=== PATIENT | female | born 1940 | race Caucasian/White ===

== ENCOUNTER 2021-05-16 16:25 | Day surgery (SDC) | payer MEDICARE, OTHER ==
[2021-05-16] MEDS ORDERED: Depo-Medrol 40 MG/ML IM ONE (16:26)
[2021-05-16] MEDS ORDERED: BUPIVACAINE 0.5% VIAL IJ ONE (16:26)
[2021-05-16] MEDS ORDERED: Xylocaine 1% Vial 30 ML PF IJ ONE (16:26)
--- NOTE | 2021-05-16 21:16 | XRAY ---
Indication: Bilateral SI joints injection. Intraoperative fluoroscopy provided for 18 seconds. 4 digital spot image submitted for interpretation demonstrates posterior needle tip projecting over the inferior left and right SI joints. Correlate with intraoperative findings/report.
--- NOTE | 2021-05-17 08:39 | XRAY ---
10 seconds fluoroscopy time in surgery for bilateral SI joint injections.
== END 2021-05-16 18:30 | disposition home or self-care (01) ==
LOC: SDC-PAIN 16:25
PROVIDERS: ATTEND Psychiatry & Neurology Pain Medicine
DX: M46.1 Sacroiliitis, not elsewhere classified (principal); Z79.899 Other long term (current) drug therapy
CPT/HCPCS: 27096; 72202; 77002; J1030; J2001; G0260

== ENCOUNTER 2021-06-13 15:53 | Day surgery (SDC) | payer MEDICARE, OTHER ==
[2021-06-13] MEDS ORDERED: BUPIVACAINE 0.5% VIAL IJ ONE (15:54)
[2021-06-13] MEDS ORDERED: Xylocaine 1% Vial 30 ML PF IJ ONE (15:54)
[2021-06-13] MEDS ORDERED: Depo-Medrol 80 MG/ML IM ONE (15:54)
--- NOTE | 2021-06-13 19:21 | XRAY ---
Indication: Right SI joint injection. Intraoperative fluoroscopy provided for 21 seconds. Single lateral digital spot image submitted for interpretation demonstrates posterior needle tip projecting mid-sacrum. Correlate with intraoperative findings/report.
--- NOTE | 2021-06-14 10:59 | XRAY ---
21 seconds fluoroscopy time in surgery for injection of the right SI joint.
== END 2021-06-13 17:10 | disposition home or self-care (01) ==
LOC: SDC-PAIN 15:53
PROVIDERS: ATTEND Psychiatry & Neurology Pain Medicine
DX: M46.1 Sacroiliitis, not elsewhere classified (principal); Z79.899 Other long term (current) drug therapy
CPT/HCPCS: 27096; 72020; 77002; G0260; J1040; J2001

== ENCOUNTER 2021-07-25 16:12 | Day surgery (SDC) | payer MEDICARE, OTHER ==
[2021-07-25] MEDS ORDERED: Depo-Medrol 40 MG/ML IM ONE (16:13)
[2021-07-25] MEDS ORDERED: BUPIVACAINE 0.5% VIAL IJ ONE (16:13)
[2021-07-25] MEDS ORDERED: Xylocaine 1% Vial 30 ML PF IJ ONE (16:13)
--- NOTE | 2021-07-25 20:42 | XRAY ---
Indication: Right hip injection. Intraoperative fluoroscopy provided for 20 seconds. Single digital spot image submitted for interpretation demonstrates needle tip projecting lateral to the right femur neck. Small amount of contrast injected for needle tip placement. Correlate with intraoperative findings/report.
--- NOTE | 2021-07-26 15:09 | XRAY ---
20 seconds of fluoroscopy was used in surgery for a right hip intra-articular injection.
== END 2021-07-25 18:38 | disposition home or self-care (01) ==
LOC: SDC-PAIN 16:12
PROVIDERS: ATTEND Psychiatry & Neurology Pain Medicine
DX: M16.11 Unilateral primary osteoarthritis, right hip (principal); Z79.899 Other long term (current) drug therapy
CPT/HCPCS: 20610; 73501; 77002; J1030; J2001; Q9966

== ENCOUNTER 2021-10-24 09:40 | Day surgery (SDC) | payer MEDICARE, OTHER ==
[2021-10-24] MEDS ORDERED: Depo-Medrol 40 MG/ML IM ONE (09:41)
[2021-10-24] MEDS ORDERED: LIDOCAINE HCL 2% 100 MG/5 ML IJ ONE (09:41)
[2021-10-24] MEDS ORDERED: Lactated Ringers 1,000 ML IV ONE (11:27)
[2021-10-24] MEDS ORDERED: DIPRIVAN 200 MG/20 ML IV ONE (11:47)
--- NOTE | 2021-10-24 13:42 | XRAY ---
Indication: Bilateral L4-S1 MBB. Intraoperative fluoroscopy provided for 24 seconds. Single digital spot image submitted for interpretation demonstrates posterior needle tips projecting over the expected left and right L4-S1 nerve roots. Correlate with intraoperative findings/report.
--- NOTE | 2021-10-24 13:48 | XRAY ---
24 seconds of fluoroscopy was used in surgery for a bilateral L4-S1 MBB.
== END 2021-10-24 12:15 | disposition home or self-care (01) ==
LOC: SDC-PAIN 09:40
PROVIDERS: ATTEND Psychiatry & Neurology Pain Medicine
DX: M47.816 Spondylosis without myelopathy or radiculopathy, lumbar region (principal); E03.9 Hypothyroidism, unspecified; Z79.899 Other long term (current) drug therapy
CPT/HCPCS: 64493; 64494; 72020; 77002; J1030; J2704

== ENCOUNTER 2021-11-21 13:46 | Day surgery (SDC) | payer MEDICARE, OTHER ==
[2021-11-21] MEDS ORDERED: Depo-Medrol 40 MG/ML IM ONE (13:47)
[2021-11-21] MEDS ORDERED: BUPIVACAINE 0.5% VIAL IJ ONE (13:47)
[2021-11-21] MEDS ORDERED: Lactated Ringers 1,000 ML IV ONE (15:01)
[2021-11-21] MEDS ORDERED: DIPRIVAN 200 MG/20 ML IV ONE (15:25)
--- NOTE | 2021-11-21 16:40 | XRAY ---
Indication: Bilateral L4-S1 MBB. Intraoperative fluoroscopy provided for 20 seconds. 2 digital spot image submitted for interpretation demonstrates posterior needle tips projecting over the expected left and right L4-S1 nerve roots. Correlate with intraoperative findings/report. Incidental left L3-L4 posterior fusion hardware.
--- NOTE | 2021-11-21 16:53 | XRAY ---
20 seconds of fluoroscopy was used in surgery for a bilateral L4-S1 MBB.
== END 2021-11-21 15:50 | disposition home or self-care (01) ==
LOC: SDC-PAIN 13:46
PROVIDERS: ATTEND Psychiatry & Neurology Pain Medicine
DX: M47.816 Spondylosis without myelopathy or radiculopathy, lumbar region (principal); E03.9 Hypothyroidism, unspecified; Z79.899 Other long term (current) drug therapy
CPT/HCPCS: 64493; 64494; 72020; 77002; J1030; J2704

== ENCOUNTER 2021-12-26 12:02 | Day surgery (SDC) | payer MEDICARE, OTHER ==
[2021-12-26] MEDS ORDERED: Depo-Medrol 40 MG/ML IM ONE (12:03)
[2021-12-26] MEDS ORDERED: BUPIVACAINE 0.5% VIAL IJ ONE (12:03)
[2021-12-26] MEDS ORDERED: Xylocaine 1% Vial 30 ML PF IJ ONE (12:03)
[2021-12-26] MEDS ORDERED: DIPRIVAN 200 MG/20 ML IV ONE (13:53)
[2021-12-26] MEDS ORDERED: Lactated Ringers 1,000 ML IV ONE (14:36)
--- NOTE | 2021-12-26 15:00 | XRAY ---
Indication: Right L4-S1 RFA. Intraoperative fluoroscopy provided for 28 seconds. 4 digital spot image submitted for interpretation demonstrates posterior needle tips projecting over the expected right L4-S1 nerve roots. Correlate with intraoperative findings/report. Incidental partially visualized left L3-L4 posterior fusion hardware/intervertebral spacers.
--- NOTE | 2021-12-26 16:26 | XRAY ---
28 seconds of fluoroscopy was used in surgery for a right L4-S1 RFA.
== END 2021-12-26 14:29 | disposition home or self-care (01) ==
LOC: SDC-PAIN 12:02
PROVIDERS: ATTEND Psychiatry & Neurology Pain Medicine
DX: M47.816 Spondylosis without myelopathy or radiculopathy, lumbar region (principal); E03.9 Hypothyroidism, unspecified; Z79.899 Other long term (current) drug therapy
CPT/HCPCS: 64635; 64636; 72100; 77002; 99100; J1030; J2001; J2704

== ENCOUNTER 2021-12-27 11:38 | Day surgery (SDC) | payer MEDICARE, OTHER ==
[2021-12-27] MEDS ORDERED: Depo-Medrol 40 MG/ML IM ONE (11:39)
[2021-12-27] MEDS ORDERED: Xylocaine 1% Vial 30 ML PF IJ ONE (11:39)
[2021-12-27] MEDS ORDERED: BUPIVACAINE 0.5% VIAL IJ ONE (11:39)
[2021-12-27] MEDS ORDERED: DIPRIVAN 200 MG/20 ML IV ONE (13:33)
[2021-12-27] MEDS ORDERED: Lactated Ringers 1,000 ML IV ONE (13:56)
--- NOTE | 2021-12-27 14:39 | XRAY ---
Indication: Left L4-S1 RFA. Intraoperative fluoroscopy provided for 56 seconds. 4 digital spot images submitted for interpretation demonstrates posterior needle tips projecting over the expected left L4-S1 nerve roots. Correlate with intraoperative findings/report. Incidental left L3-L4 posterior fusion hardware/intervertebral spacers.
--- NOTE | 2021-12-27 15:33 | XRAY ---
56 seconds of fluoroscopy was used in surgery for a left L4-S1 RFA.
== END 2021-12-27 14:11 | disposition home or self-care (01) ==
LOC: SDC-PAIN 11:38
PROVIDERS: ATTEND Psychiatry & Neurology Pain Medicine
DX: M47.816 Spondylosis without myelopathy or radiculopathy, lumbar region (principal); Z79.899 Other long term (current) drug therapy
CPT/HCPCS: 64635; 64636; 72100; 77002; 99100; J1030; J2001; J2704

== ENCOUNTER 2022-03-13 13:18 | Day surgery (SDC) | payer MEDICARE, OTHER ==
[2022-03-13] MEDS ORDERED: XYLOCAINE-MPF 1% 5ML SDV IJ ONE (13:19)
[2022-03-13] MEDS ORDERED: Depo-Medrol 40 MG/ML IM ONE (13:19)
[2022-03-13] MEDS ORDERED: Marcaine Mpf 0.5% Vial 30 Ml IJ ONE (13:19)
--- NOTE | 2022-03-13 16:18 | XRAY ---
Indication: Bilateral SI joint injection. Intraoperative fluoroscopy provided for 17 seconds. 4 digital spot image submitted for interpretation demonstrates posterior needle tip projecting over the inferior left and right SI joint. Correlate with intraoperative findings/report.
--- NOTE | 2022-03-13 17:35 | XRAY ---
17 seconds of fluoroscopy was used in surgery for bilateral SI joints inections.
== END 2022-03-13 15:34 | disposition home or self-care (01) ==
LOC: SDC-PAIN 13:18
PROVIDERS: ATTEND Psychiatry & Neurology Pain Medicine
DX: M46.1 Sacroiliitis, not elsewhere classified (principal); Z79.899 Other long term (current) drug therapy
CPT/HCPCS: 27096; 72202; 77002; G0260; J1030

== ENCOUNTER 2022-04-10 09:55 | Day surgery (SDC) | payer MEDICARE, OTHER ==
[2022-04-10] MEDS ORDERED: Marcaine Mpf 0.5% Vial 30 Ml IJ ONE ×2 (09:56)
[2022-04-10] MEDS ORDERED: XYLOCAINE-MPF 1% 5ML SDV IJ ONE (09:56)
[2022-04-10] MEDS ORDERED: Depo-Medrol 40 MG/ML IM ONE (09:56)
[2022-04-10] MEDS ORDERED: DIPRIVAN 200 MG/20 ML IV ONE ×2 (11:13→11:26)
[2022-04-10] MEDS ORDERED: Lactated Ringers 1,000 ML IV ONE (14:02)
--- NOTE | 2022-04-10 14:15 | XRAY ---
Indication: Left SI joint RFA. Intraoperative fluoroscopy provided for 55 seconds. Single digital spot image submitted for interpretation demonstrates posterior needle tips projecting over the left SI joint. Correlate with intraoperative findings/report.
--- NOTE | 2022-04-10 14:54 | XRAY ---
55 seconds fluoroscopy time in surgery for RFA of the left SI joint.
== END 2022-04-10 12:45 | disposition home or self-care (01) ==
LOC: SDC-PAIN 09:55
PROVIDERS: ATTEND Psychiatry & Neurology Pain Medicine
DX: M46.1 Sacroiliitis, not elsewhere classified (principal); Z79.899 Other long term (current) drug therapy
CPT/HCPCS: 64625; 72202; 77002; 93005; 99100; J1030; J2704

== ENCOUNTER 2022-04-17 10:55 | Day surgery (SDC) | payer MEDICARE, OTHER ==
[2022-04-17] MEDS ORDERED: XYLOCAINE-MPF 1% 5ML SDV IJ ONE (10:56)
[2022-04-17] MEDS ORDERED: Depo-Medrol 40 MG/ML IM ONE (10:56)
[2022-04-17] MEDS ORDERED: Marcaine Mpf 0.5% Vial 30 Ml IJ ONE (10:56)
[2022-04-17] MEDS ORDERED: Reglan 10 MG/2 ML ONE (11:22)
[2022-04-17] MEDS ORDERED: Lactated Ringers 1,000 ML IV ONE (12:37)
[2022-04-17] MEDS ORDERED: DIPRIVAN 200 MG/20 ML IV ONE (12:59)
--- NOTE | 2022-04-17 15:21 | XRAY ---
Indication: Right SI joint RFA. Intraoperative fluoroscopy provided for 23 seconds. 2 digital spot image submitted for interpretation demonstrates 4 posterior needle tips projecting medial to the right SI joint. Correlate with intraoperative findings/report.
--- NOTE | 2022-04-17 15:26 | XRAY ---
23 seconds fluoroscopy time in surgery for right SI joint RFA.
== END 2022-04-17 13:33 | disposition home or self-care (01) ==
LOC: SDC-PAIN 10:55
PROVIDERS: ATTEND Psychiatry & Neurology Pain Medicine
DX: M47.816 Spondylosis without myelopathy or radiculopathy, lumbar region (principal); Z79.899 Other long term (current) drug therapy
CPT/HCPCS: 64625; 72202; 77002; 99100; J1030; J2704